=== PATIENT | male | born 1990 | race Two or more races ===

== ENCOUNTER 2021-07-09 14:15 | Emergency (ER) | payer OTHER, SELFPAY ==
[2021-07-09 14:16] VITALS: BP 163/87; PULSE 131; RESP 15; TEMP 36.6; O2SAT 98; BMI 47.1
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
== END 2021-07-09 15:27 | disposition home or self-care (01) ==
PROVIDERS: Emergency Provider Emergency Medicine; Visit Provider Emergency Medicine
DX: S39.012A Strain of muscle, fascia and tendon of lower back, initial encounter (principal); Z68.42 Body mass index [BMI] 45.0-49.9, adult; V89.2XXA Person injured in unspecified motor-vehicle accident, traffic, initial encounter; S16.1XXA Strain of muscle, fascia and tendon at neck level, initial encounter; E66.9 Obesity, unspecified
CPT/HCPCS: 72040; 72100; 99282

== ENCOUNTER 2022-06-24 17:03 | Emergency (ER) | payer OTHER, SELFPAY ==
[2022-06-24 17:03] VITALS: BP 166/96; PULSE 124; RESP 20; TEMP 36.1; O2SAT 98; BMI 54.5
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
--- NOTE | 2022-06-24 17:20 | RAD_ITS ---
INDICATION: cough EXAMINATION/TECHNIQUE: X-RAY - XR Chest 2 Views COMPARISON: No previous relevant examinations available for comparison.. FINDINGS: LIFE-SUPPORT AND LINES: 1. None HEART AND VESSELS: The cardiac silhouette, pulmonary vasculature have normal appearance. No evidence of congestive failure. LUNGS AND PLEURAL SPACES: Coarse interstitial markings in the perihilar and infrahilar regions greater on LEFT than RIGHT. No consolidation, no effusion. No pulmonary mass is noted. MEDIASTINUM AND HILAR REGIONS: No masses adenopathy noted. No areas of calcification. Visualized upper airway is normal in position. BONY ELEMENTS: No acute bony changes noted. RAD/Chest PA and Lateral IMPRESSION: 1. Coarse interstitial markings suspicious of early infiltrate in the perihilar regions and infrahilar regions greater on LEFT than RIGHT. No consolidation, no congestive failure or effusion. Electronically Signed: Olu Rodriguez MD at 17:35 EDT ,
[2022-06-24 17:47] VITALS: BP 145/78; PULSE 72; RESP 16; TEMP 36.6; O2SAT 99
[2022-06-24] MEDS: Azithromycin 250 MG Tablet 500 MG PO (17:47)
== END 2022-06-24 17:49 | disposition home or self-care (01) ==
PROVIDERS: Emergency Provider Emergency Medicine; Visit Provider Emergency Medicine
DX: J06.9 Acute upper respiratory infection, unspecified (principal)
CPT/HCPCS: 71046; 99283